=== PATIENT | female | born 1970 | race Caucasian/White ===

== ENCOUNTER → 2017-07-22 | Outpatient (CLI) | payer BC ==
[~2017-07-22] MED LIST: IBUP600T44 PO; PRCUNK PO; PRENATA2 OR
--- NOTE | 2017-07-23 05:30 | PAP/PSG TECHNICIAN REPORT ---
[facility] [employer] Flight Engineer Polysomnogram Report Study name: None Report date: 07/23/2017 Study date: 07/22/2017 Referring Physician: Dr. Bertrand Name: CHARLES TOLENTINO Interpreting Physician: Vinayak Bertrand D.O. 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 Sex: Female Age: 47 StudyType: PSG Weight: 212 lbs 16 inches Height: 47 years, Height 5' 0" Neck Circum: BMI: 41.4 Medications: DOXYCYCLINE HYCLATE 100 MG, FLONASE ALLERGY Patient History PATIENT HAS HISTORY OF SNORING, HEADACHES, FATIGUE AND DAYTIME SLEEPINESS. SHE GENERALLY TAKES NAPS EVERY DAY WHEN SHE GETS HOME FROM WORK. SHE IS HERE TODAY FOR AN EVALUATION FOR ALEX. ESS = 10 RM 6 Parameters Monitored NPSG: E1-M2, E2-M1, Fp1-M2, Fp2-M1, F3-M2, F4-M2, F4-M1, C3-M2, C4-M2, C4-M1, O1-M2, O2-M2, O2-M1, T3-M2, T4-M1, P3-M2, P4-M1, CHIN1, CHIN2, HR, EKG, Legs, PFLOW, SNOR, FLOW, CFLOW, Tidal Volume, THOR, ABDO, SpO2, PLTH, CPRESS, ETCO2 Wave, ETCO2, pH Sleep Architecture Sleep Stages Time at Lights Off 10:24:48 PM STAGES Time (min.) TST (%) Time at Lights On 5:00:18 AM Wake 32.0 -- Total Recording Time (TRT) 396.50 min. N1 24.0 7 Total Sleep Period (TSP) 383.0 min. N2 169.0 46 Total Sleep Time (TST) 363.5min. N3 68.5 19 Awake Time 32.0 min. REM 102.0 28 Wake after Sleep Onset 19.5 min. Sleep Efficiency (SE) 92 % Sleep Onset Latency (URIAH) 12.5 min. Number of Stage 1 Shifts None Awakenings 16 Stage Changes 72 Number of REM periods 7 REM 102.0 28 REM Latency 47.5 min. NREM 261.5 72 Body Position Analysis Supine Right Left Side Prone Vertical Total Sleep Time (min.) 53.3 149.5 178.4 327.91 0.0 0.0 Total Sleep Time (%) 10% 41% 49% 90 0% N/A% Total Sleep Time REM (min.) 17.5 41.5 43.0 None 0.0 0.0 Total Sleep Time NREM (min.) 18.1 108.0 135.3 None 0.0 0.0 Intermittent Wake (min.) 17.7 4.2 10.0 None 0.0 0.0 Total Sleep Period (%) 12% None None None None None Arousals Myoclonus (PLM) * Events Count Index Events Count Index Spontaneous 30 5 Events Awake (PLMW) 28 52.5 Respiratory 2 0.5 Events Asleep w/ Arousal (PLMA) 5 0.8 PLM 5 1 Events Asleep w/o Arousal (PLMS) 119 19.6 Snoring 1 0 Total Asleep 124 20.5 Total 38 6 Total 152 23 Respiratory Analysis * CA OA MA CH H RERA Total Count 2 0 0 0 32 1 34 Index 0.3 0.0 0.0 0 5.3 0 5.8 Mean Duration 13.5 0.0 0.0 0.00 19.9 15.4 19.4 Longest Duration 13.9 0.0 0.0 0.00 0.0 15.4 41.8 Respiratory Event Summary Total Supine ~Supine Right Left Prone REM NREM Apneas Count 2 0 2 1 1 N/A 2 0 Index 0.3 0 0 0.4 0.3 N/A 1 0 Hypopneas (4% Desat) Count 32 15 17 7 10 N/A 20 12 Index 5.3 25.3 3 2.8 3.4 N/A 11.8 2.8 Apneas & All Hypopneas Count 34 15 19 8 11 N/A 22 12 Index 5.6 25 3 3 4 N/A 12.9 2.8 Respiratory Events (Pharmaceutical Compounding Supervisor+All Hyp+RERA) Count 34 15 20 9 11 N/A 22 12 Index 5.8 25 4 3.6 3.7 N/A 13.5 2.8 Respiratory Related Arousal Count 2 15 2 2 0 N/A 1 2 Index 0.5 2 0 1 0 N/A 1 0 Snoring Analysis Supine Right Left Prone REM NREM Total Snore duration 1.4 min Snores count 17 28 12 N/A 27 30 57 Snore mean duration 1.5 Sec Snores index 29 11 4 N/A 15.9 6.9 9.4 TST with snoring (%) 0.4% Desaturation Event Summary: Minimum %SpO2 Event Count Mean/Min/Max Duration(sec.) Desaturation Index % Time In Bed > 90 34 30.3 / 12.8 / 60.0 5.3 97.0 86 - 90 0 N/A 0.0 3.0 81 - 85 0 N/A 0.0 0.0 76 - 80 0 N/A 0.0 0.0 71 - 75 0 N/A 0.0 0.0 66 - 70 0 N/A 0.0 0.0 61 - 65 0 N/A 0.0 0.0 56 - 60 0 N/A 0.0 0.0 51 - 55 0 N/A 0.0 0.0 < 50 0 N/A 0.0 0.0 Total REM NREM Awake <50% 0.0 min. 0.0 min. 0.0 min. 0.0 min. 51 - 60% 0.0 min. 0.0 min. 0.0 min. 0.0 min. 61 - 70% 0.0 min. 0.0 min. 0.0 min. 0.0 min. 71 - 80% 0.0 min. 0.0 min. 0.0 min. 0.0 min. 81 - 90% 11.9 min. 7.8 min. 3.7 min. 0.5 min. 91 - 100% 383.5 min. 94.2 min. 257.8 min. 31.5 min. Average 93 93 93 94 Minimum SpO2 85 85 89 89 Desaturation Event Index 5.2 13.5 2.3 1.9 # Desat. Events below 89% 4 4 N/A N/A Time(%) with Saturation below 89% 0.2 0.2 0.0 0.0 Time(min.) with Saturation below 89% 0.6 0.6 0.0 0.0 Time (mins) REM (mins) NREM (mins) % of TST SpO2 Below 90% 23 15 N8 0.6 SpO2 Below 88% 2 0 0 0 Heart Rate Analysis Min (bpm) Max (bpm) Average (bpm) Awake 66 108 77 NREM 60 104 73 REM 62 94 76 Overall 60 104 74 Supplemental O2 Values Minimum O2 level: None Value Start Time End Time [employer] Wing Aircraft Flight Engineer Comments Mrs. Tolentino slept in the right, left and supine positions. No cardiac arrhythmia noted. Leg movements noted. No bruxism noted. Snoring was noted and scored as a 2 on a scale of 1 through 5. (0=no snoring, 5=snoring loud enough to be heard through a closed door or down the [address]) Mrs. Tolentino awoke to use the restroom 0 times during the night. Mrs. Tolentino stated I slept as well as I do when I am in my own bed. The final report will be interpreted and signed by a sleep physician. The completed physician report will then be placed in the patient medical record. Therapy (cm H2O) 0 TIB (min.) 395.5 TST (min.) 363.5 Sleep Onset (min.) 12.5 REM Onset From Sleep (min.) 47.5 Sleep Efficiency % 92 Wakefulness (%) 8 Wakefulness (min.) 32.0 NREM 1 (%) 7 NREM 1 (min.) 24.0 NREM 2 (%) 46 NREM 2 (min.) 169.0 NREM 3 (%) 19 NREM 3 (min.) 68.5 REM (%) 28 REM (min.) 102.0 # Arousals 38 Arousal Index 6 # Snore 57 Snore Index 9.4 AHI 5.6 AHI Supine 25 AHI Non-Supine 3 NREM AHI 2.8 REM AHI 12.9 RDI 5.8 # Obstructive Apnea 0 # Central Apnea 2 # Mixed Apnea 0 # Hypopneas 32 RERAs 1 Total Respiratory Events 36 Time Below SpO2 89% (min.) 0.6 Mean NREM SpO2 (%) 93 Mean REM SpO2 (%) 93 Mean Sleep SpO2 (%) 93 Min NREM SpO2 (%) 89 Min REM SpO2 (%) 85 Position Supine (min.) 53.3 Position Non-supine (min.) 327.9 LM Index Sleep 20.5 LM Index NREM 25.0 LM Index REM 8.8 Mean Heart Rate (bpm) 74 Min Heart Rate (bpm) 60
--- NOTE | 2017-07-25 09:36 | Sleep Study ---
Sleep Study Report Date of Service: 07-23-2017 Sleep Study Report CLINICAL DATA: The patient is a 47-year-old female with a history of snoring, fatigue, and headaches. Her Cro[place]ell score is 10 out of a possible 24. Her BMI is 41.4. This was an in-lab overnight polysomnography. SLEEP ARCHITECTURE: The total sleep period was 383 minutes. The total sleep time was 363.5 minutes. The sleep efficiency was normal at 92 percent. The sleep latency was 12.5 minutes which is normal. Wake after sleep onset was 19.5 minutes. The REM latency was mildly decreased to 47.5 minutes. Sleep consisted of stage N1 7 percent, stage N2 46 percent, stage N3 19 percent, stage REM 28 percent. AROUSAL DATA: The patient had a total of 38 arousals including 30 spontaneous arousals, 2 respiratory arousals, 5 PLM arousals, and 1 snoring arousal. The arousal index was 6. PLM DATA: The patient had 124 periodic limb movements of sleep for a PLM index of 20.5. There were 5 arousals associated with limb movements for a PLM arousal index of 0.8. EKG: The underlying cardiac rhythm was normal sinus. The cardiac rates ranged from 60-104 beats per minute. The higher recorded heart rates are likely artifactual. The average heart rate was 74 beats per minute. RESPIRATORY DATA: The patient had a total of 34 respiratory events including 2 central apneas and 32 hypopneas. Hypopneas were scored according to the 4 percent desaturation rule. The longest apnea was 13.9 seconds. Mean duration of the hypopneas was 19.9 seconds. There were is also 1 RERAs. The apnea-hypopnea index was mildly elevated at 5.6. This reflects mild sleep apnea. OXIMETRY DATA: The average saturation for the night was 93 percent. The minimum saturation was 85 percent. This was very transient. There was a total of 0.6 minutes with saturations less than 89 percent. GOLD LEAF PRINTER COMMENTS: The patient slept on the right, left, and supine positions. No cardiac arrhythmia noted. Leg movements noted. No bruxism noted. Snoring was noted and scored as a 2 on a scale of 1 through 5. IMPRESSIONS: 1. Mild obstructive sleep apnea 2. Periodic limb movement disorder COMMENTS: The patient has very mild sleep apnea. Her sleep efficiency was normal. Her sleep appeared to be well consolidated. She has complaints of fatigue and daytime somnolence. It is difficult to determine if the sleep apnea is the major cause. She had a modest number of limb movements and she gives a history of some restless legs in the evening and during the night. RECOMMENDATIONS: 1. Consideration is given to a trial of nasal CPAP. This could be accomplished by an in-lab CPAP titration or with treatment by an auto CPAP. 2. Weight loss is advised in light of the elevation of body mass index of 41.4. 3. Consideration could be given to a trial of medication for the leg movements. Clinical correlation would be advised. Copies To 1: Vinayak Bertrand DO; Ry Mckeon, DO
== END | disposition home or self-care (01) ==
LOC: C.NEUR 20:00
PROVIDERS: ATTEND Internal Medicine Pulmonary Disease
DX: G47.33 Obstructive sleep apnea (adult) (pediatric) (principal)